=== PATIENT | male | born 1945 | race Caucasian/White ===

== ENCOUNTER 2022-10-04 09:29 | Emergency (ER) | payer MEDICARE, BC, SELFPAY ==
[2022-10-04] VITALS (11 sets, daily range): BP systolic 108–119; BP diastolic 73–78; PULSE 64–74; RESP 18; TEMP 36; O2SAT 92–96; BMI 25.4
--- NOTE | 2022-10-04 09:58 | ED.CHESTPAIN ---
HPI - Chest Pain General Time Seen by Provider: 09:58 Date Seen: 10/04/22 Chief Complaint: Chest Pain Stated Complaint: possible heart attack, chest pain/leg pain Time Seen by Provider: 10/04/22 09:58 Source: patient and RN notes reviewed Mode of arrival: ambulatory Limitations: no limitations History of Present Illness HPI narrative: Chris is a very pleasant 77-year-old gentleman with history of pacer, hyperlipidemia and GERD who comes to the emergency room for evaluation of chest pressure. This gentleman had initially presented to the [facility] and he was sent over here to the emergency room. He has a quite extensive list of concerns. Primarily today he notes that he has been experiencing chest pressure for the past couple of months. It seems to be dependent on how tired he is he states. He notes that he fatigues easily and he is this is been going on for awhile. He notes that in the evenings it is usually worse. He states that when he is up and around he actually feels better. He describes an incident of acid reflux that was quite bad right before the 17 of August. He describes a bad night at which she had chest discomfort and a very bad taste in his mouth. He states that bad taste in his mouth is still somewhat present but much better than it was before. That night he tried some Tums and then started on omeprazole and it has been improved since that time. He notes that he had been constipated prior to that and somehow that in vent ?unplugged him? and he is now stooling without difficulty. He has had a 13 lb weight loss however in this time frame. He notes that he ate well last night and he has an appetite Patient also describes intermittent leg pain. He is wondering if it is a neuropathy. He states that he had gone to see Dr. Unger at the [facility] this morning but they sent him here. Related Data Home Medications Medication Instructions Recorded Confirmed bisoprolol fumarate 5 mg tablet 2.5 mg PO DAILY 10/04/22 10/04/22 rosuvastatin 10 mg tablet 10 mg PO QPM 10/04/22 10/04/22 Allergies Allergy/AdvReac Type Severity Reaction Status Date / Time No Known Drug Allergies Allergy Verified 10/04/22 09:48 Review of Systems Status of ROS Reports: 10 or more systems reviewed and unremarkable except as noted in History and below Const Reports: fatigue; Denies: fever or chills Eyes Denies: change in vision ENMT Denies: neck pain, difficulty swallowing or hoarseness Cardio Reports: chest pain (Described as pressure); Denies: palpitations, edema, swelling of feet/ankles, lightheadedness or shortness of breath with exertion Resp Denies: shortness of breath GI Denies: abdominal pain, nausea, vomiting, diarrhea, constipation or difficulty swallowing Denies: painful urination Musculo Reports: back pain; Denies: neck pain Neuro Denies: headache Endo Reports: fatigue PFSH PFSH Social History Smoking Status: Never smoker How often do you have a drink containing alcohol: 2-4 times a month AUDIT-C Alcohol total score: 2 Non-prescribed substance use: denies use Exam Narrative Exam Narrative: Patient is alert and oriented. Vague in his complaints and rather challenging to pin down on certain time frames or details of complaints. A pleasant gentleman. EOM is full and pupils equal round. Heart is with regular rate and rhythm. Lungs are clear. Abdomen is soft. He has some very slight tenderness in the right upper quadrant. No masses are palpated. Lower extremities without edema or tenderness. Moving all extremities. Lower extremities are with appropriate strength in hip flexion knee extension flexion. DTRs 1+ at the knee. Const Vital Signs, click to edit/add: Vital Signs - 24 hr 10/04/22 09:40 10/04/22 10:15 10/04/22 10:32 Temperature 96.8 F L Pulse Rate 67 Pulse Rate [Pulse Oximeter] 74 Respiratory Rate 18 Blood Pressure 119/78 Blood Pressure [Right Upper Arm] 113/77 Pulse Oximetry 93 95 Oxygen Delivery Method Room Air 10/04/22 10:33 10/04/22 11:00 10/04/22 11:01 Temperature Pulse Rate 72 70 69 Pulse Rate [Pulse Oximeter] Respiratory Rate Blood Pressure 108/75 Blood Pressure [Right Upper Arm] Pulse Oximetry 94 94 92 Oxygen Delivery Method 10/04/22 11:30 10/04/22 11:32 10/04/22 11:33 Temperature Pulse Rate 72 74 64 Pulse Rate [Pulse Oximeter] Respiratory Rate Blood Pressure 109/76 Blood Pressure [Right Upper Arm] Pulse Oximetry 94 94 96 Oxygen Delivery Method 10/04/22 12:00 10/04/22 12:01 Temperature Pulse Rate 65 70 Pulse Rate [Pulse Oximeter] Respiratory Rate Blood Pressure 110/73 Blood Pressure [Right Upper Arm] Pulse Oximetry 95 95 Oxygen Delivery Method Documenting provider has reviewed patient's vital signs: yes Course Course Hospital Course: At this time patient has quite an extensive list of concerns. I did state that I would like to workup his complaints for underlying heart issues and I fenton suggest we check an EKG and blood work regards to that. I would also add liver function test to his labs as he may be experiencing biliary colic as well. The 13 lb weight loss is of some concern today. Vital Signs Vital signs: Initial Vital Signs Temperature 96.8 F L 10/04/22 09:40 Temperature Source Temporal Artery Scan 10/04/22 09:40 Pulse Rate 74 10/04/22 09:40 Respiratory Rate 18 10/04/22 09:40 Blood Pressure 113/77 10/04/22 09:40 Blood Pressure Mean 89 10/04/22 09:40 Blood Pressure Position Supine 10/04/22 09:40 Pulse Oximetry 93 10/04/22 09:40 Oxygen Delivery Method Room Air 10/04/22 09:40 Vital Signs Temperature 96.8 F L 10/04/22 09:40 Pulse Rate 74 10/04/22 09:40 Respiratory Rate 18 10/04/22 09:40 Blood Pressure 113/77 10/04/22 09:40 Pulse Oximetry 93 10/04/22 09:40 Oxygen Delivery Method Room Air 10/04/22 09:40 Temperature 96.8 F L 10/04/22 09:40 Pulse Rate 70 10/04/22 12:01 Respiratory Rate 18 10/04/22 09:40 Blood Pressure 110/73 10/04/22 12:01 Pulse Oximetry 95 10/04/22 12:01 Oxygen Delivery Method Room Air 10/04/22 09:40 MDM - Chest Pain MDM Narrative Medical decision making narrative: 1. Chest pressure-I think this is most likely reflux GERD or maybe even biliary colic. Patient has 2 reassuring EKGs as well as 2-cardiac enzymes. Patient to continue on his current omeprazole dosing. Follow-up at the clinic for a recheck possibly scheduling for endoscopy verses abdominal ultrasound. 2. Recent weight [id number] at clinic for recheck. 3. Low back pain-patient has increasing pain when he stands up and walks a few steps. He describes this as shooting discomfort into the back of his head. After a time this does go away and only lasts 1st few seconds. I suspect that he may have spinal stenosis. After further discussion I do discover that this is not a new problem and he has had further workup in the past. He was supposed to see a spinal specialist but was not able to make that appointment. I heavily encouraged him to try and reestablish with the spinal surgeon. 4. Disposition-home at this time. Follow-up with Dr. Unger which she has scheduled on October 07. Return to the ER for worsening symptoms and as needed. Medical Records Data Attestation: I reviewed the patient's medical records. Lab Data Attestation: I reviewed the patient's lab results. Labs: Lab Results 10/04/22 10/04/22 Range/Units 10:10 12:17 WBC 5.87 (4.50-11.00) K/uL RBC 4.65 (4.30-5.90) m/uL Hgb 14.4 (13.5-17.5) gm/dL Hct 43.6 (37.0-53.0) % MCV 94 (80-100) fL MCH 31 (26-34) pg MCHC 33 (32-36) gm/dL RDW Coeff of Antonina 12.5 (11.5-15.5) % Plt Count 182 (140-440) K/uL Neut % (Auto) 64.4 (42.0-72.0) % Lymph % (Auto) 21.1 (20-44) % [place] % (Auto) 11.2 H (0.0-11.0) % Eos % (Auto) 2.6 (0.0-7.0) % Baso % (Auto) 0.5 (0.0-3.0) % Neut # (Auto) 3.78 (1.7-7.0) K/uL Lymph # (Auto) 1.24 (0.90-2.90) K/uL [place] # (Auto) 0.70 (0.00-0.90) K/UL Eos # (Auto) 0.15 (0.00-0.50) K/uL Baso # (Auto) 0.03 (0.00-0.30) K/uL Abs Immat Gran (auto) 0.01 (0.00-0.30) K/uL Imm/Tot Granulo (auto) 0.2 % Sodium 141 (135-149) mmol/L Potassium 4.1 (3.6-5.1) mmol/L Chloride 109 (96-114) mmol/L Carbon Dioxide 22 (20-32) mmol/L Anion Gap 10 (7-15) mEq/L BUN 22 (7-30) mg/dL Creatinine 1.4 (0.5-1.5) mg/dL Estimated Creat Clear 49.27 Estimated GFR 52 ml/min Glucose 91 (60-115) mg/dL Magnesium 2.1 (1.5-2.6) mg/dL Total Bilirubin 0.8 (0.1-1.5) mg/dL AST 37 H (12-35) U/L ALT 25 (4-50) U/L Alkaline Phosphatase 90 (40-150) U/L C-Reactive Protein 1.1 H (0.5-1.0) mg/dL Total Protein 7.7 (6.0-8.3) g/dL Albumin 4.3 (3.3-5.0) g/dL POC Troponin I 0.00 L 0.00 L (0.01-0.04) ng/ml Imaging Data Chest x-ray: Attestation: I have reviewed the pertinent imaging results. Radiologist's impression: lear lungs. Overall heart size is toward the upper limit of normal accentuated by the portable technique. Left-sided dual chamber pacemaker with its lead tips in the right atrium and right ventricle. No pneumothorax. IMPRESSION: No acute cardiopulmonary process identified. ECG Data Attestation: I personally reviewed and interpreted this ECG as follows: ECG interpretation date: 10/04/22 Interpretation: EKG by my read shows sinus rhythm at a rate of 74. I do not note any acute ST or T-wave changes at this time. EKG 2. By my read shows sinus rhythm at a rate of 69. There is AV block with GA interval being 21. No acute ST or T-wave changes are noted however. Discharge Plan Discharge Clinical Impression: Back pain, Atypical chest pain Patient Disposition: Home, Self-Care Condition: Unchanged Additional Instructions: 1. I suspect that your occasional chest pressure is related to reflux or possibly your gallbladder. Today your EKGs looked good and you had 2 blood tests that were negative for a heart attack. I would like you to follow-up with your regular physician for consideration of a gallbladder ultrasound and or upper endoscopy. Continue on the medication called omeprazole daily. You mention that you had recent weight loss as well. 2. I suspect that you also have lumbar stenosis based on what you have told me and what you have been experiencing. It sounds like you have had workup in the local area and that you were referred to a spinal specialist but were unable to go to that appointment. Please ask Dr. Unger or the [facility] to help arrange that appointment once again. 3. Your vital signs, electrolytes white count and hemoglobin were all normal today. 4. Return to the emergency room for chest pain, worsening symptoms and as needed. Prescriptions: No Action bisoprolol fumarate 5 mg tablet 2.5 mg PO DAILY rosuvastatin 10 mg tablet 10 mg PO QPM Stand Alone Forms: [employer] Info Instructions
--- NOTE | 2022-10-04 10:21 | CRLHL7_ITS ---
For Patients: As a result of the Cures Act, medical imaging exams and procedure reports are released immediately into your electronic medical record. You may view this report before your referring provider. If you have questions, please contact your health care provider. INDICATION: Chest pain with chest pressure. Pacemaker. TECHNIQUE: AP portable chest. COMPARISON: None. FINDINGS: Clear lungs. Overall heart size is toward the upper limit of normal accentuated by the portable technique. Left-sided dual chamber pacemaker with its lead tips in the right atrium and right ventricle. No pneumothorax. IMPRESSION: No acute cardiopulmonary process identified. Dictated by Gerson Parks MD @ 10/04/2022 10:55:24 AM (Electronically Signed)
[2022-10-04 10:34] LABS: Basophils Absolute Auto 0.03 K/uL (0.00-0.30); Basophils Percent Auto 0.5 % (0.0-3.0); Eosinophils Absolute Auto 0.15 K/uL (0.00-0.50); Eosinophils Percent Auto 2.6 % (0.0-7.0); Hematocrit 43.6 % (37.0-53.0); Hemoglobin* 14.4 gm/dL (13.5-17.5); Immature Granulocytes Abs Auto 0.01 K/uL (0.00-0.30); Immature Granulocytes Pct Auto 0.2 %; Lymphocytes Absolute Auto 1.24 K/uL (0.90-2.90); Lymphocytes Percent Auto 21.1 % (20-44); Mean Corpuscular HGB Conc 33 gm/dL (32-36); Mean Corpuscular Hemoglobin 31 pg (26-34); Mean Corpuscular Volume 94 fL (80-100); Monocytes Percent Auto 11.2 % (0.0-11.0); Neutrophils Absolute Auto 3.78 K/uL (1.7-7.0); Neutrophils Percent Auto 64.4 % (42.0-72.0); Platelet Count* 182 K/uL (140-440); RDW Coefficient of Variation % 12.5 % (11.5-15.5); Red Blood Count 4.65 m/uL (4.30-5.90); White Blood Count* 5.87 K/uL (4.50-11.00)
[2022-10-04 10:35] LABS: Slide Review Reflex No
[2022-10-04 10:50] LABS: Albumin* 4.3 g/dL (3.3-5.0)
[2022-10-04 10:51] LABS: Chloride* 109 mmol/L (96-114); Potassium* 4.1 mmol/L (3.6-5.1); Sodium* 141 mmol/L (135-149)
[2022-10-04 10:53] LABS: Bilirubin Total* 0.8 mg/dL (0.1-1.5); Creatinine* 1.4 mg/dL (0.5-1.5); Est. Creatinine Clearance* 49.27; Estimated Glomerular Filt Rate 52 ml/min
[2022-10-04 10:54] LABS: Alanine Aminotransferase* 25 U/L (4-50); Alkaline Phosphatase* 90 U/L (40-150); Aspartate Amino Transferase* 37 U/L (12-35); Blood Urea Nitrogen* 22 mg/dL (7-30); Carbon Dioxide* 22 mmol/L (20-32); Glucose* 91 mg/dL (60-115); Magnesium* 2.1 mg/dL (1.5-2.6); Total Protein* 7.7 g/dL (6.0-8.3)
[2022-10-04 10:57] LABS: C Reactive Protein* 1.1 mg/dL (0.5-1.0)
[2022-10-04 11:22] LABS: Anion Gap 10 mEq/L (7-15)
[2022-10-07 19:42] LABS: Calcium* 9.2 mg/dL (8.4-10.6)
== END 2022-10-04 13:09 | disposition home or self-care (01) ==
PROVIDERS: Emergency Provider Family Medicine; PCP Family Medicine
DX: R07.9 Chest pain, unspecified (principal); M54.9 Dorsalgia, unspecified
CPT/HCPCS: 36415; 71045; 80053; 83735; 84484; 85025; 86140; 93005; 99284; 99285

== ENCOUNTER 2023-03-29 10:15 | Emergency (ER) | payer MEDICARE, BC, SELFPAY ==
[2023-03-29] VITALS (31 sets, daily range): BP systolic 104–143; BP diastolic 66–113; PULSE 70–89; RESP 16; TEMP 36.4–36.8; O2SAT 89–95; BMI 25.8
--- NOTE | 2023-03-29 11:12 | XR_ITS ---
INDICATION: COUGH, COVID COMPARISON: 10/04/2022 TECHNIQUE: TWO VIEW CHEST FINDINGS: INTACT PACER WIRES. MEDIASTINUM STABLE. AREAS OF SCARRING ARE PRESENT BILATERALLY. NO CONSOLIDATIVE DENSITY. NO PLEURAL EFFUSION. MILD PROMINENCE OF THE BRONCHIAL MACKAY BILATERALLY. IMPRESSION: MILD BILATERAL BRONCHIOLITIS.
--- NOTE | 2023-03-29 11:19 | ED_ITS ---
HPI - General Adult General Date Seen: 03/29/23 Chief complaint: Shortness of Breath/Dyspnea Stated complaint: covid +,cough, trouble breathing Time Seen by Provider: 03/29/23 10:26 Source: patient and family Mode of arrival: ambulatory Limitations: no limitations History of Present Illness HPI narrative: Patient is a very nice 77-year-old gentleman who presents here with a cough, and slime production in his chest. He has tested positive for COVID 4 days ago, and was sick starting on the 5th day he tested. He felt fevers and chills, but did not take his temperature the 1st 36 hours but since then he has felt better. He does not feel any significant shortness of breath, and no pain when he coughs, just coughing a lot. His was with him reminds him that she had the similar illness before this did not test at all, and also had a cough but is not complaining as much as him. He is not taking any pwaj-umz-gjwhtum medications for this. 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 He recently had this interrogated before he got sick with COVID, that said he had atrial fibrillation on off. He did not notice that he is in atrial fibrillation. Denies leg swelling, hemoptysis, chest discomfort syncope presyncope, exertional chest pain at all. He does tell me he has a problem with reflux, is followed by , primary care doctor is Dr. Unger Related Data Home Medications Medication Instructions Recorded Confirmed bisoprolol fumarate 5 mg tablet 2.5 mg PO DAILY 10/04/22 03/29/23 rosuvastatin 10 mg tablet 10 mg PO QPM 10/04/22 03/29/23 cyanocobalamin (vitamin B-12) 1,000 mcg PO DAILY 03/29/23 03/29/23 1,000 mcg capsule pantoprazole 40 mg tablet,delayed 40 mg PO DAILY 03/29/23 03/29/23 release Previous Rx's Medication Instructions Recorded nirmatrelvir 150 mg-ritonavir 100 See Rx Instructions PO .COMPLEX 03/29/23 mg tablets in a dose pack covid #20 ea (Paxlovid) Allergies Allergy/AdvReac Type Severity Reaction Status Date / Time No Known Drug Allergies Allergy Verified 03/29/23 10:32 Review of Systems Status of ROS: Reports: 10 or more systems reviewed and unremarkable except as noted in History and below [facility] Social History Smoking Status: Never smoker How often do you have a drink containing alcohol: 2-4 times a month AUDIT-C Alcohol total score: 2 Non-prescribed substance use: denies use Exam Narrative: Exam Narrative: The patient is seen in room 7 he has no apparent distress speaking to me in full sentences, vital signs are reviewed. Pupils equal round reactive to light there is no scleral icterus redness is TMs are normal his oropharynx is normal, his neck is supple JVP is flat his chest is good air entry bilaterally with occasional coughing did not hear any wheezing crackles noted or any signs of respiratory distress. Heart sounds no clicks murmurs or gallops, he is regular rhythm currently. Abdomen is soft there is no guarding no organomegaly noted, no masses no tenderness, back is nontender, with seborrheic keratosis all over. Lower legs show mild edema, Const: Vital Signs, click to edit/add: Vital Signs - 24 hr 03/29/23 10:25 03/29/23 10:26 03/29/23 10:30 Temperature Pulse Rate 79 82 79 Pulse Rate [Pulse Oximeter] Respiratory Rate Blood Pressure 143/89 H Blood Pressure [Le ft Upper Arm] Pulse Oximetry 95 95 92 Oxygen Delivery Me thod 03/29/23 10:37 03/29/23 10:42 03/29/23 10:45 Temperature 97.6 F Pulse Rate 79 76 Pulse Rate [Pulse Oximeter] 81 Respiratory Rate 16 Blood Pressure 123/82 Blood Pressure [Le ft Upper Arm] 143/89 H Pulse Oximetry 92 91 91 Oxygen Delivery Me thod Room Air 03/29/23 11:00 03/29/23 11:02 03/29/23 11:15 Temperature Pulse Rate 81 78 80 Pulse Rate [Pulse Oximeter] Respiratory Rate 16 Blood Pressure 124/80 Blood Pressure [Le ft Upper Arm] Pulse Oximetry 92 90 92 Oxygen Delivery Me thod 03/29/23 11:19 03/29/23 11:22 03/29/23 11:32 Temperature Pulse Rate 86 89 Pulse Rate [Pulse Oximeter] Respiratory Rate Blood Pressure 140/113 H Blood Pressure [Le ft Upper Arm] Pulse Oximetry 92 91 94 Oxygen Delivery Me thod 03/29/23 11:42 03/29/23 11:45 03/29/23 12:00 Temperature Pulse Rate 78 78 71 Pulse Rate [Pulse Oximeter] Respiratory Rate Blood Pressure 122/89 Blood Pressure [Le ft Upper Arm] Pulse Oximetry 90 92 90 Oxygen Delivery Me thod 03/29/23 12:02 03/29/23 12:15 03/29/23 12:22 Temperature Pulse Rate 71 74 75 Pulse Rate [Pulse Oximeter] Respiratory Rate 16 Blood Pressure 120/81 109/86 Blood Pressure [Le ft Upper Arm] Pulse Oximetry 90 90 89 Oxygen Delivery Me thod 03/29/23 12:30 03/29/23 12:42 03/29/23 12:59 Temperature Pulse Rate 77 74 74 Pulse Rate [Pulse Oximeter] Respiratory Rate 16 Blood Pressure 109/81 Blood Pressure [Le ft Upper Arm] Pulse Oximetry 92 90 94 Oxygen Delivery Me thod 03/29/23 13:00 03/29/23 13:02 03/29/23 13:22 Temperature Pulse Rate 75 74 71 Pulse Rate [Pulse Oximeter] Respiratory Rate Blood Pressure 104/66 118/82 Blood Pressure [Le ft Upper Arm] Pulse Oximetry 92 91 91 Oxygen Delivery Ga thod 03/29/23 13:30 Temperature Pulse Rate 71 Pulse Rate [Pulse Oximeter] Respiratory Rate Blood Pressure Blood Pressure [Le ft Upper Arm] Pulse Oximetry 92 Oxygen Delivery Me thod Course Course ED Course: Discussed with the patient I do not see any evidence of a pulmonary embolism on the CT, is laboratory test is reassuring, he did however had bilateral infiltrates, classic for COVID. I do think he is under the 5 day course, and we can treat him for Paxil of it, he has had increased risk for complications. He will require the renal dose, as his GFR is on the lower side at 49. Let us is I called the prescription into the pharmacy and we will have him stop his rosuvastin. I went over worsening signs and symptoms with him and they will re- presented if these occur. Vital Signs Vital signs: Initial Vital Signs Pulse Rate 79 03/29/23 10:25 Pulse Oximetry 95 03/29/23 10:25 Vital Signs Pulse Rate 79 03/29/23 10:25 Pulse Oximetry 95 03/29/23 10:25 Temperature 97.6 F 03/29/23 10:37 Pulse Rate 71 03/29/23 13:30 Respiratory Rate 16 03/29/23 12:42 Blood Pressure 118/82 03/29/23 13:22 Pulse Oximetry 92 03/29/23 13:30 Oxygen Delivery Method Room Air 03/29/23 10:37 Medications Administered Medications: Discontinued Medications Generic Name Dose Route Start Last Admin Trade Name Jami PRN Reason Stop Dose Admin Sodium Chloride 1,000 mls @ 1,000 mls/hr 03/29/23 12:45 03/29/23 13:15 0.9 % Sodium Chloride 1000 Ml IV 03/29/23 13:44 1,000 mls/hr .Q1H PHILIPPE Administration Medical Decision Making MDM Narrative Medical decision making narrative: Life-threatening differential diagnosis includes occluded COPD exacerbation, pulmonary edema, acute coronary syndromes, pulmonary embolism, pneumonia, and pneumothorax. Other differential diagnosis considerations include asthma, bronchitis as well as other etiologies He is COVID positive, and we will do a chest x-ray and laboratory works, if the D-dimer is reasonable to wrists proceed from here. Does have a outstanding GE reflux, with a history of atrial fibrillation. He likely would fit the criteria for anticoagulation I will give him to follow-up with primary care to discuss this. He also may benefit from Paxlovid , I will go through the liver pool site, to ensure that there is no interactions Lab Data Lab results reviewed: Yes I reviewed the patient's lab results Labs: Lab Results 03/29/23 Range/Units 11:13 WBC 9.90 (4.50-11.00) K/uL RBC 4.94 (4.30-5.90) m/uL Hgb 15.2 (13.5-17.5) gm/dL Hct 45.9 (37.0-53.0) % MCV 93 (80-100) fL MCH 31 (26-34) pg MCHC 33 (32-36) gm/dL RDW Coeff of Antonina 12.7 (11.5-15.5) % Plt Count 171 (140-440) K/uL Neut % (Auto) 81.8 H (42.0-72.0) % Lymph % (Auto) 10.2 L (20-44) % Evangeline % (Auto) 7.4 (0.0-11.0) % Eos % (Auto) 0.4 (0.0-7.0) % Baso % (Auto) 0.1 (0.0-3.0) % Neut # (Auto) 8.10 H (1.7-7.0) K/uL Lymph # (Auto) 1.00 (0.90-2.90) K/uL Ev[place]eline # (Auto) 0.70 (0.00-0.90) K/UL Eos # (Auto) 0.04 (0.00-0.50) K/uL Baso # (Auto) 0.01 (0.00-0.30) K/uL Abs Immat Gran (auto) 0.01 (0.00-0.30) K/uL Imm/Tot Granulo (auto) 0.1 % D-Dimer Quant (PE/DVT) 0.80 H (0.00-0.50) ug/ml Sodium 137 (135-149) mmol/L Potassium 4.2 (3.6-5.1) mmol/L Chloride 106 (96-114) mmol/L Carbon Dioxide 20 (20-32) mmol/L Anion Gap 11 (7-15) mEq/L BUN 15 (7-30) mg/dL Creatinine 1.4 (0.5-1.5) mg/dL Estimated Creat Clear 49.27 Estimated GFR 52 ml/min Glucose 115 (60-115) mg/dL Calcium 8.9 (8.4-10.6) mg/dL C-Reactive Protein 2.7 H (0.5-1.0) mg/dL NT-Pro-B Natriuret Pep 56 pg/mL POC Troponin I 0.00 L (0.01-0.04) ng/ml Imaging Data Chest x-ray: Attestation: I have reviewed the pertinent imaging results. My impression: Chest x-ray shows mild cardiomegaly, no acute infiltrates, review with previous chest x-rays done. He does have the pacer wires, Assessment: Chronic changes, no acute changes CT scan - chest: Attestation: I have reviewed the pertinent imaging results. My impression: negative chgest ct for PE Radiologist's impression: Patient: Chris Hill MR#: [id number] : 1945 Acct:[id number] Loc: ED Service Date: 03/29/[address]: Ordering Physician: Matthew Deleon M.D. Date of Service: 03/29/23 Procedure(s): CT angio chest PE protocol Accession Number(s): [id number] cc: Matthew Deleon M.D.; Sumit Unger M.D.~ INDICATION: SHORTNESS OF BREATH, COVID POSITIVE. TECHNIQUE: POSTCONTRAST CT CHEST PERFORMED USING CTA PROTOCOL AFTER THE UNEVENTFUL ADMINISTRATION OF [address] INTRAVENOUS CONTRAST. COMPARISON: CHEST X-RAY EARLIER TODAY. FINDINGS: ATHEROSCLEROTIC CHANGES ARE PRESENT. THERE IS AN INCIDENTAL DUODENAL DIVERTICULUM WITHIN THE UPPER ABDOMEN. NO UPPER ABDOMINAL ADENOPATHY OR HYDRONEPHROSIS. NO ASCITES OR SPLENOMEGALY. THE GALLBLADDER IS ABSENT. NO PLEURAL OR PERICARDIAL EFFUSION. CALCIFIED LYMPH NODES ARE PRESENT REPRESENTING SEQUELA OF GRANULOMATOUS DISEASE. NO SUSPICIOUS THYROID LESION. NORMAL AXILLARY LYMPH NODES. THERE IS NO PULMONARY EMBOLISM IN THE MAIN, LOBAR OR SEGMENTAL PULMONARY ARTERIES. NO AORTIC DISSECTION OR ANEURYSM. PATCHY ILL-DEFINED GROUND-GLASS DENSITIES ARE PRESENT BILATERALLY. NO PNEUMOTHORAX. NO AIR BRONCHOGRAMS. NO HYDROSTATIC EDEMA. IMPRESSION: NO PULMONARY EMBOLISM MILD BILATERAL COVID INFILTRATES. Dictated By: ECG Data Attestation: I personally reviewed and interpreted this ECG as follows: Interpretation: EKG shows normal sinus rhythm with a ventricular rate of 76, incomplete right bundle-branch block, when I compare this to the old EKG, from September 2022 there is no changes. Discharge Plan Discharge Clinical Impression: COVID, Pneumonia due to COVID-19 virus Patient Disposition: Home w/ Parent or Adult Condition: Stable Instructions: How To Wash Your Hands (ED), COVID-19 (Coronavirus Disease 2019) (ED), COVID-19 and Chronic Health Conditions (ED), Safely Care for Someone Who Has COVID-19 (ED), Social Distancing Guidelines for COVID-19 (ED) Additional Instructions: Home rest your CT scan did not show any evidence of a blood clot, I will treat you for the COVID, please take this medication as directed, hold year cholesterol medication( Rosuvastin) and do not restarted till 2 days after your done the COVID medication. Return here if increasing shortness of breath, worsening chest pain, nausea vomiting or other issues Activity Level: Light activity Discharge Diet: Regular Prescriptions: New Paxlovid 150-100 mg tablets,dose pack See Rx Instructions .ROUTE .COMPLEX Qty: 20 0RF Rx Instructions: orally per package directions Continued pantoprazole 40 mg tablet,delayed release (DR/EC) 40 mg PO DAILY cyanocobalamin (vitamin B-12) 1,000 mcg capsule 1,000 mcg PO DAILY bisoprolol fumarate 5 mg tablet 2.5 mg PO DAILY Held rosuvastatin 10 mg tablet 10 mg PO QPM Hold Instructions: Resume on 04/06/23. hold til 2 after done the paxlovid Follow Up/Referrals: Sumit Unger MD [Primary Care Provider] - Stand Alone Forms: [employer] Info Instructions
[2023-03-29 11:27] LABS: Basophils Absolute Auto 0.01 K/uL (0.00-0.30); Basophils Percent Auto 0.1 % (0.0-3.0); Eosinophils Absolute Auto 0.04 K/uL (0.00-0.50); Eosinophils Percent Auto 0.4 % (0.0-7.0); Hematocrit 45.9 % (37.0-53.0); Hemoglobin* 15.2 gm/dL (13.5-17.5); Immature Granulocytes Abs Auto 0.01 K/uL (0.00-0.30); Immature Granulocytes Pct Auto 0.1 %; Lymphocytes Percent Auto 10.2 % (20-44); Mean Corpuscular HGB Conc 33 gm/dL (32-36); Mean Corpuscular Hemoglobin 31 pg (26-34); Mean Corpuscular Volume 93 fL (80-100); Monocytes Percent Auto 7.4 % (0.0-11.0); Neutrophils Percent Auto 81.8 % (42.0-72.0); Platelet Count* 171 K/uL (140-440); RDW Coefficient of Variation % 12.7 % (11.5-15.5); Red Blood Count 4.94 m/uL (4.30-5.90)
[2023-03-29 11:31] LABS: Slide Review Reflex No
[2023-03-29 11:34] LABS: Chloride* 106 mmol/L (96-114)
[2023-03-29 11:35] LABS: Potassium* 4.2 mmol/L (3.6-5.1); Sodium* 137 mmol/L (135-149)
[2023-03-29 11:37] LABS: Creatinine* 1.4 mg/dL (0.5-1.5); Est. Creatinine Clearance* 49.27; Estimated Glomerular Filt Rate 52 ml/min
[2023-03-29 11:38] LABS: Anion Gap 11 mEq/L (7-15); Blood Urea Nitrogen* 15 mg/dL (7-30); Calcium* 8.9 mg/dL (8.4-10.6); Carbon Dioxide* 20 mmol/L (20-32); Glucose* 115 mg/dL (60-115)
[2023-03-29 11:41] LABS: C Reactive Protein* 2.7 mg/dL (0.5-1.0)
[2023-03-29 11:48] LABS: NT Pro B Type NatriureticPept* 56 pg/mL
--- OUTSIDE RECORDS SUMMARY | 2023-03-29 11:50 | XMS_ITS | Clinical Summary ---
Author Name Unknown Organization [facility] Address [address] [place] [address] Care Team Providers Care Supply Chain Procurement Manager Name Role Phone Barrington Han MD Primary Care Provider Pattie Aguillon MD Unavailable [phone] Allergies Active Allergy Reactions Criticality Noted Date Comments Amiodarone Other 08/16/2018 Hyperthyroidism Metoprolol Succinate Dizziness 07/15/2016 Medications Medication Sig Dispensed Refills Start Date End Date Status aspirin 81 mg Oral TbEC Take 81 mg by mouth Once Daily. 0 Active Active Problems Problem Noted Date Diagnosed Date Cardiac pacemaker 05/06/2017 Overview: 05/28/2016 - Dual-chamber Medtronic pacemaker, Advisa MRI [id number], and leads implanted by Dr. Melissa Billy. 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 Family History Medical History Relation Comments Coronary Heart Disease Brother CABG Heart Disease Brother 3 stents Heart Disease Father NC High Blood Pressure Father High Blood Pressure Mother Relation Status Comments Brother Father Mother Social History Tobacco Use Types Packs/Day Years Used Date Smoking Tobacco: Never Smokeless Tobacco: Never Alcohol Use Standard Drinks/Week Comments Yes 0 (1 standard drink = 0.6 oz pur e alcohol) Sex and Gender Information Value Date Recorded Sex Assigned at Not on file Gender Identity Not on file Sexual Orientation Not on file Last Filed Vital Signs Vital Sign Reading Time Taken Comments Blood Pressure 135/91 12/18/2019 10:59 AM STACKING MACHINE OPERATOR Pulse 80 12/18/2019 10:59 AM STACKING MACHINE OPERATOR Temperature 36.4 ??C (97.5 ??F) 05/29/2016 11:36 AM C DT Respiratory Rate 18 05/29/2016 11:36 AM CDT Oxygen Saturation 95% 05/29/2016 11:36 AM CDT Inhaled Oxygen Concentration - - Weight 93.9 kg (207 lb) 12/18/2019 10:55 AM STACKING MACHINE OPERATOR Height 182.9 cm (6') 12/18/2019 10:55 AM STACKING MACHINE OPERATOR Body Mass Index 28.07 12/18/2019 10:55 AM STACKING MACHINE OPERATOR Plan of Treatment Health Maintenance Due Date Last Done Comments Colonoscopy 1945 Hepatitis C Screening 1945 Depression Assessment (PHQ-2) 04/28/1946 Zoster Vaccine (1 of 2) 1996 RSV (1 - 1-dose 60+ series) 2006 Yearly Review of HCD 01/04/2020 01/04/2019, 09/22/2018, 01/20/2018, Additional history exists Lipid Screening 05/28/2021 05/28/2016, 08/2015, 01/15/2015, Additional history exists COVID-19 Vaccine ( - 2022-2 4 season) 2022 12/03/2020, 05/09/2020, 04/18/2020 Influenza Vaccine (#1) 2022 , 12/26/2018, 12/02/2016 Adult Tetanus Booster 04/19/2023 04/18/2013 Pneumococcal 65+ Completed 12/02/2016, 01/15/2015 Medical Devices Implanted Type Area Housekeeping And Laundry Team Leader Device Identifier Shelf Expiration Date Model / Serial / Lot Mdtn 5076 Capsurefix Novus Mri Surescan [id number] Implanted:05/15 (Quantity not on file) Dura/tutoplas t Medtronic Inc 5076 CAPSUREFIX NOVUS MRI SURESCAN / [id number] / Mdtn A2dr01 Advis[address] Martinez [id number] Implanted:05/15 (Quantity not on file) Pacemaker Medtronic Inc [id number] MARTINEZ / [id number] / Advance Directives For more information, please contact: [phone] Documents on File Type Date Recorded Patient Medical Aide Expl anation HCD - Agent Only 12/28/2018 7:46 AM mari d 12/19/2018 Healthcare Agents on File Name Relationship Healthcare Agent Relationship Communication Izabella Hill Health Care Agent Mildred Grimmbria First Alternate Health Care Agent Care Teams Supply Chain Procurement Manager Relationship Specialty Start Date End Date Barrington Han MD [address] [place] [address] PCP - General 03/12/14 Pattie Aguillon MD [address] [place] [address] PCP - Judo Teacher Cardiology 02/26/15
--- OUTSIDE RECORDS SUMMARY | 2023-03-29 11:50 | XMS_ITS | Referral Summary ---
Author Name Unknown Organization [facility] Address [address] [place] [address] Care Team Providers Care Mirror Painter Name Role Phone Barrington Han MD Primary Care Provider Pattie Aguillon MD Unavailable [phone] Allergies Active Allergy Reactions Criticality Noted [...] Overview: Tx'd with amiodarone 200 mg daily. Social History Tobacco Use Types Packs/Day Years [...] Comments Blood Pressure 135/91 12/18/2019 10:59 AM NOVELTY CHAIN MAKER Pulse 80 12/18/2019 10:59 AM NOVELTY CHAIN MAKER Temperature 36.4 ??C (97.5 ??F) 05/29/2016 11:36 AM C DT Respiratory Rate 18 05/29/2016 11:36 AM CDT Oxygen Saturation 95% 05/29/2016 11:36 AM CDT Inhaled Oxygen Concentration - - Weight 93.9 kg (207 lb) 12/18/2019 10:55 AM NOVELTY CHAIN MAKER Height 182.9 cm (6') 12/18/2019 10:55 AM NOVELTY CHAIN MAKER Body Mass Index 28.07 12/18/2019 10:55 AM NOVELTY CHAIN MAKER Plan of Treatment Not on file Medical Devices Implanted Type Area Cigarette Vendor Device Identifier Shelf Expiration Date Model / Serial / Lot Mdtn 5076 Capsurefix Novus Mri Surescan [id number] Implanted:05/15 (Quantity not on file) Dura/tutoplas t Medtronic Inc 5076 CAPSUREFIX NOVUS MRI SURESCAN / [id number] / Mdtn A2dr01 Advis[address] Martinez [id number] Implanted:05/15 (Quantity not on file) Pacemaker Medtronic Inc [id number] MARTINEZ / [id number] / Advance Directives For more information, please contact: [phone] Documents on File Type Date Recorded Patient Ripshear Operator Expl anation HCD - Agent Only 12/28/2018 7:46 AM mari d 12/19/2018 Healthcare Agents on File Name Relationship Healthcare Agent Relationship Communication Izabella Hill Health Care Agent Mildred Grimmbria First Alternate Health Care Agent Care Teams Mirror Painter Relationship Specialty Start Date End Date Barrington Han MD [address] [place] [address] PCP - General 03/12/14 Pattie Aguillon MD [address] [place] [address] PCP - Machinist General Cardiology 02/26/15
--- OUTSIDE RECORDS SUMMARY | 2023-03-29 11:51 | XMS_ITS | Clinical Summary ---
Author Name Unknown Organization [facility] Address [place], [place] [address] Care Team Providers Care Grief Counsellor Name Role Phone Barrington Han MD Primary Care Provider Allergies Active Allergy Reactions Criticality Noted Date Comments Amiodarone Other - Describe In Comment Field 08/16/2018 Hyperthyroidism Hyperthyroidism Metoprolol Succinate Dizziness 07/15/2016 Medications Medication Sig Dispensed Refills Start Date End Date Status naproxen (ALEVE) 220 mg tablet Take 1 Tablet (220 mg) by mouth 2 times daily with meals. 0 07/30/2020 Active cyanocobalamin (Vitamin B-12) 1,000 mcg tabletIndications:Diz ziness Take 1 Tablet (1,000 mcg) by mouth once daily. 90 Tablet 3 04/29/2021 Active ibuprofen (ADVIL; MOTRIN) 200 mg tablet Take 3 Tablets (600 mg) by mouth once daily. PRN 0 07/09/2021 Active ciclopirox solution (Penlac) 8 % solutionIndications:D ermatophytosis of nail Apply topically to affected area(s) at bedtime. Remove build up once weekly. 6.6 mL 2 08/05/2021 Active bisoprolol (ZEBETA) 5 mg tabletIndications:NSV T (nonsustained ventricular tachycardia) (HC) Take 0.5 Tablets (2.5 mg) by mouth once daily. 45 Tablet 0 08/31/2022 Active rosuvastatin (CRESTOR) 10 mg tabletIndications:NSV T (nonsustained ventricular tachycardia) (HC),Hyperlipidemia, unspecified hyperlipidemia type Take 1 Tablet (10 mg) by mouth at bedtime. 90 Tablet 3 11/18/2022 Active pantoprazole (PROTONIX) 40 mg delayed-release tabletIndications:Gas troesophageal reflux disease, unspecified whether esophagitis present Take 1 Tablet (40 mg) by mouth once daily. 90 Tablet 3 01/28/2023 Active apixaban (ELIQUIS) 5 mg tabletIndications:Par oxysmal atrial fibrillation (HC) Take 1 Tablet (5 mg) by mouth two times daily. 180 Tablet 3 03/24/2023 Active Active Problems Problem Noted Date Diagnosed Date Thyroid dysfunction 09/06/2018 Cardiac pacemaker 05/06/2017 Overview: 05/28/2016 - Dual-chamber Medtronic pacemaker, Advisa MRI A2DR01, and leads implanted by Dr. Melissa Billy. 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 09/06/2018 04/29/2021 Sick sinus syndrome 06/16/2016 04/30/19 22 Encounters Date Type Department Care Team Description 03/24/2023 Telephone [facility] [address] [place] [address] Damian Pearl MD Lab 02/10/2023 9:35 AM AIRLINE RADIO OPERATOR Office Visit [facility] [address] [place] [address] Sumit Unger MD Follow Up (EGD); Concerns (Still having dizzy spells in the evening, from sitting to standing, limbs tingle) 02/10/2023 Travel 01/27/2023 Refill [facility] [address] [place] [address] Sumit Unger MD Refill Request (Pantoprazole) 01/11/2023 1:30 PM AIRLINE RADIO OPERATOR Procedure Only [facility] [address] [place] [address] Karsten Anderson MD Procedure (EGD) 01/11/2023 Travel 01/05/2023 Telephone [facility] [address] [place] [address] Karsten Anderson MD Appointment Reminder (EGD on Tue01/11/2023 arriving at 1330) from Last 3 Months Immunizations Name Administration Dates Next Due COVID-19 vaccine (Pfizer-Bio NTech 30mcg/0.3mL) 12YO+ BIVALENT PF, MDV 12/04/2021 COVID-19 vaccine (Pfizer-Bio NTech 30mcg/0.3mL) PF, MDV 12/03/2020,05/09/2020,04/18/2020 Influenza, High-dose Inactivated 12/26/2018 Influenza, High-dose Quadriv alent Inactivated 11/25/2022,12/10/2019 Influenza, IIV4 12/02/2016 Influenza, Inactivated AIIV4 (Age 65+ Years) Preserv Free 11/25/2021,10/29/2020 Pneumococcal Poly,23-Valent (Pneumovax) 12/03/19 17 Pneumococcal conj 13-Valent (Prevnar 13) 015 Tdap 04/18/2013 Zoster (Shingrix-RZV, recombinant) 10/01/2022, Family History Medical History Relation Name Comments Heart Disease Brother cad - 3 stents - age 60 Heart Disease Father Diabetes Mother Relation Name Status Comments Brother Father Mother Social History Tobacco Use Types Packs/Day Years Used Date Smoking Tobacco: Never Smokeless Tobacco: Never Tobacco Cessation:Counseling Given: Yes Alcohol Use Standard Drinks/Week Comments Not Currently 0 (1 standard drink = 0.6 oz pur e alcohol) occ PHQ-2 Answer Date Recorded PHQ-2 TOTAL SCORE 0 10/21/2022 Social Connections Answer Date Recorded Frequency of Communication with Friends and Fami ly Not on file 02/14/2021 Financial Resource Strain Answer Date R ecorded Difficulty of Paying Living Expenses Not on file 02/14/2021 Difficulty of Paying Living Expenses Not on file 02/14/2021 Sex and Gender Information Value Date Recorded Sex Assigned at Not on file Gender Identity Not on file Sexual Orientation Not on file Obstetrics History Last Filed Vital Signs Vital Sign Reading Time Taken Comments Blood Pressure 131/78 02/10/2023 9:20 AM AIRLINE RADIO OPERATOR Pulse 86 02/10/2023 9:20 AM AIRLINE RADIO OPERATOR Temperature 36.8 ??C (98.2 ??F) 02/18/2022 8:55 AM CS T Respiratory Rate 14 01/11/2023 3:00 PM AIRLINE RADIO OPERATOR Oxygen Saturation 98% 02/10/2023 9:20 AM AIRLINE RADIO OPERATOR Inhaled Oxygen Concentration - - Weight 90.4 kg (199 lb 3.2 oz) 02/10/2023 9:20 A M AIRLINE RADIO OPERATOR Height 182.9 cm (6') 02/10/2023 9:20 AM AIRLINE RADIO OPERATOR Body Mass Index 27.02 02/10/2023 9:20 AM AIRLINE RADIO OPERATOR Plan of Treatment Upcoming Encounters Date Type Department Care Team (Late st Contact Info) Description 07/22/2023 Cardiac Device Check [facility] [phone] 11/22/2023 10:00 AM CDT Cardiac Device Check [facility] [address] [place] [phone] Health Maintenance Due Date Last Done Comments Medicare Wellness for age 65+ 12/04/2021 12/03/2020 Tetanus booster 04/19/2023 04/18/2013 Depression screening for age 12+ 10/22/2023 10/21/2022, 12/04/2020, 12/03/2020, Additional history exists BMI (ht and wt on same day) for age 18+ 02/11/2024 02/10/2023, 10/21/2022, 02/18/2022, Additional history exists Tdap Completed 04/18/2013 Pneumococcal series for age 65+ Completed 7, 01/15/2015 Hepatitis C screening for ag e 18-79 Completed 07/30/2020 Zoster (shingles) series for age 50+ Completed 10/01/2022, 07/26/2022 COVID-19 vaccine series Completed 11/26/19 23, 12/04/2021, 12/03/2020, Additional history exists Influenza for age 65+ Completed 11/25/2022 , 11/25/2021, 10/29/2020, Additional history exists Procedures Procedure Name Priority Date/Time Associated Diagnosis Comments PATH TISSUE EXAM Routine 01/11/2023 2:15 PM AIRLINE RADIO OPERATOR Gastroesophageal reflux disease, unspecified whether esophagitis present Abdominal pain, epigastric Hiatal hernia Dysphagia, unspecified type ESOPHAGOGASTRODUODENOSCOPY Routine 01/11 1:20 PM AIRLINE RADIO OPERATOR Gastroesophageal reflux disease, unspecified whether esophagitis present ENDOSCOPY 01/11/2023 12:40 PM AIRLINE RADIO OPERATOR from Last 3 Months Results * PATH TISSUE EXAM (01/11/2023 2:15 PM AIRLINE RADIO OPERATOR) Case Report Pathology Report ?Case: [id number] ? Authorizing Provider: ??Karsten Anderson MD ?? Collected: ? 01/11/2023 1415 ? Ordering Location: ? [facility] ?? Received: ?01/11/2023 1605 ? Clinic ? Pathologist: ? Lukasz Farrar ? IV, MD ? Specimens: ?? A) - Duodenum Biopsy ? B) - Stomach,antrum and body random 5-point biopsies ? C) - Distal Esophagus Biopsy ? 01/13/2023 8:28 AM [facility] Final Diagnosis A) DUODENUM, BIOPSY: 1. Normal duodenal mucosa 2. Negative for celiac disease and other enteropathy B) STOMACH, BIOPSY: 1. Non-erosive reactive gastropathy (see comment) ?? a. Sampling: Antrum and body ?? b. Distribution: Antrum 2. Negative for inflammation, atrophy and Helicobacter C) ESOPHAGUS, DISTAL, BIOPSY: 1. Normal esophageal squamous mucosa 2. Negative for reflux changes and eosinophilic esophagitis 3. Negative for columnar mucosa 01/13/2023 8:28 AM [facility] Comment B) The likely etiology is an ongoing non-inflammatory type mucosal injury due to a chemical type of injury; this may be due to ingestion of non-steroidal anti-inflammator y drugs, aspirin (via prostaglandin-me diated injury), excess alcohol, corticosteroids, or bile/alkaline reflux, the latter usually in the setting of a gastroenteric anastomosis. 01/13/2023 8:28 AM [facility] Clinical Information Mr. [place] is a 77 y.o. who presents with dysphagia and reflux symptoms. EGD findings include: -LA grade A reflux -Irregular Z-line -Hiatus hernia -Gastric erythema -Normal duodenum 01/13/2023 8:28 AM AIRLINE RADIO OPERATOR [facility] Gross Description A) Received in formalin are 4 benjamin mucosal fragments ranging from 2 mm to 5 mm in greatest dimension, which are entirely submitted in one cassette. It is labeled with the patient's name and designated A. B) Received in formalin are 4 benjamin mucosal fragments ranging from 2 mm to 4 mm in greatest dimension, which are entirely submitted in one cassette. It is labeled with the patient's name and designated B. C) Received in formalin are 4 benjamin mucosal fragments ranging from 3 mm to 5 mm in greatest dimension, which are entirely submitted in one cassette. It is labeled with the patient's name and designated C. Sayda Viraj 01/12/2023 11:14 AM 01/13/2023 8:28 AM [facility] Microscopic Description The final diagnosis is based on microscopic examination of appropriate sections of all specimens. 01/13/2023 8:28 AM [facility] Additional Information Interpreted at [facility] - [address], [place] [address] 01/13/2023 8:28 AM [facility] Other (Duodenum Biopsy) Non-Blood / Unknown 01/11/2023 2:15 PM AIRLINE RADIO OPERATOR 01/11/2023 4:05 PM AIRLINE RADIO OPERATOR Specimen (specimen) (Stomach,antrum and body random 5-point biopsies) Non-Blood / Unknown 01/11/2023 2:16 PM AIRLINE RADIO OPERATOR 01/11/2023 4:05 PM AIRLINE RADIO OPERATOR Specimen (specimen) (Distal Esophagus Biopsy) 01/11/2023 2:17 PM AIRLINE RADIO OPERATOR 01/11/2023 4:05 PM AIRLINE RADIO OPERATOR Karsten Anderson MD [facility]OLOG[facility]OLOG [facility] [address] [place] [address], * ENDOSCOPY (01/11/2023 12:40 PM AIRLINE RADIO OPERATOR) 01/11/2023 12:4 0 PM AIRLINE RADIO OPERATOR Narrative Transcriptions Karsten Anderson MD - 01/11/2023 2:28 PM CST Patient Name: Chris Hill Procedure Date: 01/11/2023 Gender: Male Date of : 1945 Admit Type: Outpatient Procedure: Upper GI endoscopy Proceduralist: Karsten Anderson MD , Humaira Cabrera, JAMIL(Nurse), Page Gonzalez (Nurse) Referring MD: Sumit Unger Indications/Pre-Op Diagnosis: Dysphagia, Esophageal reflux symptoms that persist despite appropriate therapy,Epigastric abdominal pain Medications: Fentanyl 75 micrograms IV, Midazolam 2 mgIV, The level of sedation administered wasmoderate Procedure Description: Risk of bleeding, infection, perforation, need for surgery and alternatives discussed. The endoscope [id number] was introduced through the mouth, and advanced to the third part of duodenum. The upper GI endoscopy was accomplished without difficulty. The patient tolerated the procedure well. Complications: No immediate complications. Estimated Blood Loss & Specimen: Estimated blood loss: none. Specimen collected - Yes and sent to Laboratory Findings: The Z-line was irregular and was found 38 cm from the incisors. LA Grade A (one or more mucosal breaks less than 5 mm, not extending between tops of 2 mucosal folds) esophagitis with no bleeding wasfound 38 cm from the incisors. Biopsies were taken with a cold forceps for histology. A 3 cm hiatal hernia was present. Patchy moderately erythematous mucosa without bleeding was found inthe stomach. Biopsies were taken with a cold forceps for histology. The examined duodenum was normal. Biopsies were taken with a cold forceps for histology. Impressions/Post-Op Diagnosis: - Z-line irregular, 38 cm from the incisors. - LA Grade A reflux esophagitis with no bleeding. Biopsied. - 3 cm hiatal hernia. - Erythematous mucosa in the stomach. Biopsied. - Normal examined duodenum. Biopsied. Recommendation: - Patient has a contact number available for emergencies. The signsand symptoms of potential delayed complications were discussed with the patient. Return to normal activities tomorrow. Written discharge instructions were provided to the patient. - Resume previous diet. - Continue present medications. - Await pathology results. Moderate Sedation: A time out was performed before the procedure. Moderate (conscious) sedation was administered by the endoscopy nurse and supervised bythe endoscopist. The following parameters were monitored: oxygensaturation, heart rate, blood pressure, EKG, CO2, respiratory rate, adequacy of pulmonary ventilation and reponse to care. Please refer to the patient's medical record flowsheets and nursing notes for moderate sedation details. Total physician intraservice time was 10 minutes. Karsten Anderson MD 01/11/2023 2:28:11 PM This report has been signed electronically. Note Initiated On: 01/11/2023 12:40 PM Procedure Code(s): --- Professional --- 09862, Esophagogastroduodenoscopy, flexible, transoral; with biopsy, single or multiple Diagnosis Code(s): --- Professional --- K22.89, Other specified disease ofesophagus K21.00, Gastro-esophageal reflux diseasewith esophagitis, without bleeding K31.89, Other diseases of stomach andduodenum R13.10, Dysphagia, unspecified R10.13, Epigastric pain CPT copyright 2021 [employer]. All rights reserved. The codes documented in this report are preliminary and upon hydro operator reviewmay be revised to meet current compliance requirements. Scope In: 2:13:07 PM Scope Out: 2:19:03 PM Karsten Anderson MD PROCEDURE ORD from Last 3 Months Care Teams Grief Counsellor Relationship Specialty Start Date End Date Barrington Han MD [address] [place] [address] PCP - General 03/09/18
--- OUTSIDE RECORDS SUMMARY | 2023-03-29 11:51 | XMS_ITS | Referral Summary ---
Author Name Unknown Organization [facility] Address [address] [place] [address] Care Team Providers Care Pediatric Sports Medicine Specialist Name Role Phone Barrington Han MD Primary Care Provider [phone] Allergies Active Allergy Reactions Criticality Noted Date Comments Amiodarone Other (See Comments) 08/16/2018 Hyperthyroidism Metoprolol 07/15/2016 Other reaction(s): Dizziness Medications Medication Sig Dispensed Refills Start Date End Date Status aspirin (ASA) 81 MG chewable tablet Daily 0 Active Active Problems Problem Noted Date Diagnosed Date Thyroid dysfunction 09/06/2018 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 09/06/2018 Immunizations Name Administration Dates Next Due Influenza (High Dose) 3 valent vaccine 9 Influenza Vaccine >6 months,quad, PF 12/02/2016 Pneumo Conj 13-V (2010&after) 01/15/2015 Pneumococcal 23 valent 12/02/2016 TDAP Vaccine (Adacel) 04/18/2013 Social History Tobacco Use Types Packs/Day Years Used Date Smoking Tobacco: Never Smokeless Tobacco: Never Alcohol Use Standard Drinks/Week Comments Yes 0 (1 standard drink = 0.6 oz pur e alcohol) Adolescent Education Answer Date Record ed Getting School Help Needed Not on file 11/15 Sex and Gender Information Value Date Recorded Sex Assigned at Not on file Gender Identity Not on file Sexual Orientation Not on file Last Filed Vital Signs Vital Sign Reading Time Taken Comments Blood Pressure 138/86 04/25/2019 9:58 AM CDT Pulse 82 04/25/2019 9:58 AM CDT Temperature 36.3 ??C (97.4 ??F) 04/25/2019 9:58 AM CD T Respiratory Rate 16 04/25/2019 9:58 AM CDT Oxygen Saturation 97% 04/25/2019 9:58 AM CDT Inhaled Oxygen Concentration - - Weight 95.5 kg (210 lb 9.6 oz) 04/25/2019 9:58 A M CDT Height 182.9 cm (6') 04/25/2019 9:58 AM CDT Body Mass Index 28.56 04/25/2019 9:58 AM CDT Plan of Treatment Not on file Care Teams Pediatric Sports Medicine Specialist Relationship Specialty Start Date End Date Barrington Han MD PCP - General Family Practice 09/06/18
--- OUTSIDE RECORDS SUMMARY | 2023-03-29 11:51 | XMS_ITS | Encounter Summary ---
Author Name Unknown Organization [facility] Address [address] [place] [id number] Care Team Providers Care Riveter Portable Machine Name Role Phone Barrington Han MD Primary Care Provider [phone] Pattie Aguillon MD Unavailable [phone] Reason for Visit * Reason Onset Date Comments Dizziness 07/24/2016 Encounter Details Date Type Department Care Team (Late st Contact Info) Description 07/24/2016 Nurse Triage [facility] - [address] [place], [place] [id number] [place] [address] [place] [address] [address] [place], [place] [id number] Social History Tobacco Use Types Packs/Day Years Used Date Smoking Tobacco: Never Smokeless Tobacco: Never Alcohol Use Standard Drinks/Week Comments Yes 0 (1 standard drink = 0.6 oz pur e alcohol) Sex and Gender Information Value Date Recorded Sex Assigned at Not on file Gender Identity Not on file Sexual Orientation Not on file documented as of this encounter Miscellaneous Notes * Telephone Encounter - Katiuska Tripathi RN - 07/24/2016 12:15 PM CDT S: fainting episode B: reports Pt had been dizzy but has not fainted she reports his dizziness has improved since stopping Metoprolol. She states Pt is wearing a remote tracing device She reports he fainted this morning. I am not sure what he hit but he landed on a linoleum floor. She states he was out for approx 5 seconds then woke up He was a little dazed after but now seems fine reports no apparent injuries noted at that Time. I marked the episode what did it say A She denies chest pain SOB,N&V,DEY,weakness,arm,neck or jaw pain,HR problems,dizziness abd or back pain. BP taken while financial writer on the phone reported as [id number] R: Pt advised to have Pt seen in ED. Instructed to call 911 if sx become life threatening. Shewas able to verbalize understanding of instructions given and has no further questions at this time. Reinaldo AVALOSRN Reason for Disposition ??? Patient sounds very sick or weak to the triager Protocols used: DIZZINESS - [id number] documented in this encounter Plan of Treatment Not on file documented as of this encounter Visit Diagnoses Not on filedocumented in this encounter Care Teams Riveter Portable Machine Relationship Specialty Start Date End Date Barrington Han MD [address] [place] [address] PCP - General 03/12/14 Pattie Aguillon MD [address] [place] [address] PCP - Soil Surveyor Cardiology 02/26/15 documented as of this encounter
--- OUTSIDE RECORDS SUMMARY | 2023-03-29 11:51 | XMS_ITS | Clinical Summary ---
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 Name Role Phone Barrington Han MD Primary Care Provider [phone] Allergies Active Allergy Reactions Criticality Noted Date Comments Amiodarone Other (See Comments) 08/16/2018 Hyperthyroidism Metoprolol 07/15/2016 Other reaction(s): Dizziness Medications Medication Sig Dispensed Refills Start Date End Date Status aspirin (ASA) 81 MG chewable tablet Daily 0 Active Active Problems Problem Noted Date Diagnosed Date Thyroid dysfunction 09/06/2018 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
--- NOTE | 2023-03-29 12:33 | CT_ITS ---
INDICATION: SHORTNESS OF BREATH, COVID POSITIVE. TECHNIQUE: POSTCONTRAST CT CHEST PERFORMED USING CTA PROTOCOL AFTER THE UNEVENTFUL ADMINISTRATION OF [address] INTRAVENOUS CONTRAST. COMPARISON: CHEST X-RAY EARLIER TODAY. FINDINGS: ATHEROSCLEROTIC CHANGES ARE PRESENT. THERE IS AN INCIDENTAL DUODENAL DIVERTICULUM WITHIN THE UPPER ABDOMEN. NO UPPER ABDOMINAL ADENOPATHY OR HYDRONEPHROSIS. NO ASCITES OR SPLENOMEGALY. THE GALLBLADDER IS ABSENT. NO PLEURAL OR PERICARDIAL EFFUSION. CALCIFIED LYMPH NODES ARE PRESENT REPRESENTING SEQUELA OF GRANULOMATOUS DISEASE. NO SUSPICIOUS THYROID LESION. NORMAL AXILLARY LYMPH NODES. THERE IS NO PULMONARY EMBOLISM IN THE MAIN, LOBAR OR SEGMENTAL PULMONARY ARTERIES. NO AORTIC DISSECTION OR ANEURYSM. PATCHY ILL-DEFINED GROUND-GLASS DENSITIES ARE PRESENT BILATERALLY. NO PNEUMOTHORAX. NO AIR BRONCHOGRAMS. NO HYDROSTATIC EDEMA. IMPRESSION: NO PULMONARY EMBOLISM MILD BILATERAL COVID INFILTRATES.
[2023-03-29] MEDS: 0.9 % SODIUM CHLORIDE 1000 ml 1,000 ML IV (13:15)
== END 2023-03-29 14:40 | disposition home or self-care (01) ==
PROVIDERS: Emergency Provider Family Medicine; PCP Family Medicine
DX: U07.1 COVID-19 (principal); J18.9 Pneumonia, unspecified organism
CPT/HCPCS: 36415; 71046; 71275; 80048; 83880; 84484; 85025; 85379; 86140; 93005; 94761; 99284; 99285; J7030; Q9967